=== PATIENT | female | born 1970 | race Caucasian/White ===

== ENCOUNTER 2016-11-15 02:02 | Emergency (ER) | payer OTHER ==
[~2016-11-15] VITALS: Ht 160 cm; Wt 65.5 kg
[2016-11-15 02:05] VITALS: Ht 160 cm; Wt 65.5 kg
[2016-11-15] MEDS ORDERED: KETOROLAC 60 MG INJ IM STA (02:32)
--- NOTE | 2016-11-15 02:35 | ERD ---
ER Documentation Chief Complaint Date/Time DATE: 11/15/16 TIME: 02:30 Chief Complaint pain left leg x 3 hours. denies trauma HPI 46-year-old female who presents emergency department for left leg pain that worse for the past 3 hours. Patient stated it started this morning when she woke up but it was mild that it got worse for the last 3 hours. LMP: Stated that it was a week ago. A2 Denies headache, dizziness, blurred vision, neck pain, shoulder pain, chest pain , abdominal pain, nausea, vomiting, urinary symptoms, loss of bowel or bladder control, numbness or tingling sensation, direct trauma, injury, falls, fever, chills, recent long travel, recent exposure to any illness. No known drug allergies. No past medical history. No surgeries. Medication: [id number] Advil. Social: Not working at this time. Smokes 5 sticks of cigarettes a day. Denies use of alcoholic beverages, use of illegal drugs. ROS All systems reviewed and are negative except as per history of present illness. Medications Home Meds Active Scripts Hydrocodone/Acetaminophen ([place] 5-325 Tablet) 1 Each Tablet, 1 TAB PO Q6H Y for PAIN, #5 TAB Prov:PASILABAN,EVELYNAR F 11/15/16 Cyclobenzaprine Hcl* (Cyclobenzaprine Hcl*) 10 Mg Tablet, 10 MG PO Q12 Y for PAIN, #15 TAB Prov:PASILABAN,KLAR F 11/15/16 Ibuprofen* (Motrin*) 800 Mg Tab, 800 MG PO Q8 Y for PAIN AND OR ELEVATED TEMP, # 30 TAB Prov:PASILABAN,KLAR F 11/15/16 Allergies Allergies: Coded Allergies: No Known Allergy (Unverified , 11/15/16) PMhx/Soc History of Surgery: Yes (RENAL STONES 2002) Anesthesia Reaction: No Hx Neurological Disorder: No Hx Respiratory Disorders: No Hx Cardiac Disorders: No Hx Psychiatric Problems: No Hx Miscellaneous Medical Probl: No Hx Alcohol Use: No Hx Substance Use: No Hx Tobacco Use: No Physical Exam Vitals Vital Signs Date Time Temp Pulse Resp B/P Pulse Ox O2 Delivery O2 Flow Rate FiO2 11/15/16 02:56 98.5 20 131/84 99 11/15/16 02:05 98.5 100 20 131/84 99 Physical Exam Const: [] Head: Atraumatic Eyes: Normal Conjunctiva ENT: Normal External Ears, Nose and Mouth. Neck: Full range of motion..~ No meningismus. Resp: Clear to auscultation bilaterally Cardio: Regular rate and rhythm, no murmurs Abd: Soft, non tender, non distended. Normal bowel sounds Skin: No petechiae or rashes Back: No midline or flank tenderness. Positive left straight leg test. Left lower extremity has no edema, discoloration, or obvious deformity. Bilateral hips are unremarkable. Left knee is unremarkable. Left ankle/foot unremarkable. Right lower extremities unremarkable. No neurovascular deficits. No saddle anesthesia. No neurological deficits. Ext: No cyanosis, or edema Neur: Awake and alert Psych: Normal Mood and Affect Results 24 hrs Current Medications Medications (Trade) Dose Ordered Sig/Pranay Route PRN Reason Start Time Stop Time Status Last Admin Dose Admin Ketorolac Tromethamine (Toradol) 60 mg ONCE STAT IM 11/15/16 02:32 11/15/16 02:33 DC 11/15/16 02:43 Acetaminophen/ Hydrocodone Bitart ([place] (10/325)) 1 tab ONCE ONCE PO 11/15/16 03:00 11/15/16 03:01 DC 11/15/16 02:51 Procedures/MDM 46-year-old female who presents emergency department for left leg pain that worse for the past 3 hours. Patient stated it started this morning when she woke up but it was mild that it got worse for the last 3 hours. LMP: Stated that it was a week ago. A2 Denies headache, dizziness, blurred vision, neck pain, shoulder pain, chest pain , abdominal pain, nausea, vomiting, urinary symptoms, loss of bowel or bladder control, numbness or tingling sensation, direct trauma, injury, falls, fever, chills, recent long travel, recent exposure to any illness. No known drug allergies. No past medical history. No surgeries. Medication: [id number] Advil. Social: Not working at this time. Smokes 5 sticks of cigarettes a day. Denies use of alcoholic beverages, use of illegal drugs. Physical exam: Positive left straight leg test. Left lower extremity has no edema, discoloration, or obvious deformity. Bilateral hips are unremarkable. Left knee is unremarkable. Left ankle/foot unremarkable. Right lower extremities unremarkable. No neurovascular deficits. No saddle anesthesia. No neurological deficits. Disease process was explained to the patient and family member. They verbalized understanding and agreed with the diagnostic test, treatment, plan of care, follow-up care. POC urine : Negative. Treatment: Toradol IM. Reevaluation: Denies headache, dizziness, blurred vision, neck pain, shoulder pain, chest pain, back pain, abdominal pain, nausea, vomiting, loss of bowel and bladder control, urinary symptoms, numbness or tingling sensation, difficulty walking. Respirations even and unlabored. Lungs are clear to auscultation. Active bowel sounds. No abdominal tenderness. Unremarkable musculoskeletal exam. C-spine/T-spine/L-spine are in midline and is good and full range of motion and has no swelling/deformity/point of tenderness/ discoloration. No neurovascular deficits. No neurological deficits. No saddle anesthesia. Differential diagnosis: Back pain versus back strain versus sciatica Final diagnosis: Sciatica, leg pain Prescription: Flexeril. Motrin. [place]. Follow-up with primary care physician the next 24-48 hours. Come back to emergency department for any new symptoms or any worsening symptoms. All questions and concerns are answered. Patient verbalized understanding and agreed with the plan of care. Hemodynamically stable on discharge. Departure Diagnosis: Primary Impression: Sciatica Additional Impression: Leg pain Condition: Stable Additional Instructions: Follow-up with primary care physician the next 24-48 hours. Come back to emergency department for any new symptoms or any worsening symptoms. All questions and concerns are answered. Patient verbalized understanding and agreed with the plan of care. EMIR GARNER Nov 15, 2016 02:35
[2016-11-15] MEDS ORDERED: IBUP800T25 PO (02:49)
[2016-11-15] MEDS ORDERED: CYCL-319 PO (02:50)
[2016-11-15] MEDS ORDERED: HYDR-906 PO (02:50)
[2016-11-15 02:56] VITALS: BP 131/84; RESP 20; TEMP 98.5
[2016-11-15] MEDS ORDERED: HYDROCODONE/APAP (10/325) TAB PO ONE (03:00)
== END 2016-11-15 08:30 | disposition home or self-care (01) ==
LOC: FTE 02:02
DX: M54.32 Sciatica, left side (principal); F17.210 Nicotine dependence, cigarettes, uncomplicated
CPT/HCPCS: 96372; J1885; Z7502; Z7610